=== PATIENT | male | born 1955 | race Caucasian/White ===

== ENCOUNTER → 2017-12-22 | Outpatient (CLI) | payer SELFPAY ==
[~2017-12-22] MED LIST: AMOXICILLIN500 MG PO; ASPI-COR81 M1 PO; ASPIRIN81 M1 PO; DIOVAN80 MG PO; KEFLEX500 MG PO; LOPRESSOR100 MG PO; PLAVIX75 MG PO; ULTRAM50 MG PO; ZOCOR40 MG PO
== END | disposition home or self-care (01) ==
LOC: LAB 15:10
DX: E87.5 Hyperkalemia (principal)

== ENCOUNTER 2020-05-25 21:29 | Emergency (ER) | payer OTHER ==
[~2020-05-25] VITALS: Wt 61.2 kg
[~2020-05-25 21:29] MED LIST changes: +APRESOLINE25 MG PO; +AUGMENTIN XR 11 EACH PO; +COUMADIN3 M1 PO; +COUMADIN6 M2 PO; +FUROSEMIDE40 MG PO; +ISOSORBIDE DINIT5 M2 PO; +LIPITOR40 MG PO; +LISINOPRIL5 MG PO; +LOPRESSOR50 M1 PO; +METOPROLOL SUCC25 M2 PO; +METOPROLOL SUCC50 M1 PO; +VITAMIN D-32000 UNIT PO
== END 2020-05-26 01:11 | disposition expired ==
LOC: ED 21:29
DX: S01.01XA Laceration without foreign body of scalp, initial encounter (principal); I46.9 Cardiac arrest, cause unspecified; I25.10 Atherosclerotic heart disease of native coronary artery without angina pectoris; I10 Essential (primary) hypertension; E78.00 Pure hypercholesterolemia, unspecified; Z79.01 Long term (current) use of anticoagulants; Z79.82 Long term (current) use of aspirin; Z79.899 Other long term (current) drug therapy; F17.200 Nicotine dependence, unspecified, uncomplicated; X58.XXXA Exposure to other specified factors, initial encounter; Y93.89 Activity, other specified; Y92.89 Other specified places as the place of occurrence of the external cause; Y99.8 Other external cause status